=== PATIENT | male | born 1935 | race Caucasian/White ===

== ENCOUNTER 2019-09-06 10:45 | Observation (INO) | payer MEDICARE ==
[2019-09-06] MEDS ORDERED: diphenhydrAMINE 50 MG/ML VIAL ONE (12:23)
[2019-09-06] MEDS ORDERED: Famotidine/PF 20 mg/2ml Vial ONE (12:23)
[2019-09-06] MEDS ORDERED: methylPREDNISolone Sod Succ/PF 125 MG/2 ML VIAL ONE (12:23)
--- NOTE | 2019-09-06 13:26 | CT ---
CT PULMONARY ANGIOGRAM WITH IV CONTRAST AND 3-D POSTPROCESSING: HISTORY:Chest pain. Atrial fibrillation with flutter FINDINGS: There is good contrast opacification of the pulmonary arterial vasculature without filling defects to suggest pulmonary embolism. There are vascular calcifications without evidence of aneurysmal dilatation of the thoracic aorta. Th ere is mediastinal lymphadenopathy. No pericardial effusion is seen. There is a small left and moderate right pleural effusion with adjac ent infiltrate/atelectatic changes. No pneumothoraces, lobar areas of consolidation or lung nodules are noted. Emphysematous changes are present. There are degenerative changes in the spine. Upper abdominal tomograms demonstrate calcified granulomas in the liver and spleen.. IMPRESSION: 1. No CT evidence of pulmonary embolism. 2. Bilateral pleural effusions, right larger than left. 3. Mediastinal lymphadenopathy.
[2019-09-06] MEDS ORDERED: Iopamidol 370 76% 100 ML VIAL ONE (14:43)
--- NOTE | 2019-09-06 15:12 | HP ---
PRIMARY CARE PHYSICIAN: Dr. Sheldon Riggs. REASON FOR ADMISSION: Transferred from [facility] for chest pain. HISTORY OF PRESENT ILLNESS: An 83-year-old male who has underlying history of coronary artery disease with several stents as well as history of ongoing tobacco abuse and alcohol abuse, who was presented to [facility] for chest pain. The patient's chest pain started 3 hours before going to [facility] early in the morning. It was sudden in onset, it was left-sided, associated with mild shortness of breath, it was pleuritic in nature. The patient did not have any associated nausea or diaphoresis or fever. The patient does have chronic cough which has not changed recently. The patient denies any recent upper respiratory infection. He denies any relation with food. The patient has ongoing smoking as well as alcohol abuse, the patient also dips tobacco. The patient is followed by Cardiology in past and he had several stents. At [facility], the patient's heart score was about 4. The patient had electrocardiogram which was showing atrial fibrillation with controlled ventricular response. The patient was given Lovenox 1 mg/kg, GI cocktail, morphine, IV fluid, nitroglycerin patch, and aspirin. Subsequently, the patient was transferred to our hospital for rule out acute coronary syndrome. When I saw this patient, at that time the patient was completely asymptomatic. Family members were present at bedside in the emergency room. REVIEW OF SYSTEMS: All review of systems reviewed and negative except as mentioned in HPI. PAST MEDICAL HISTORY: Coronary artery disease with several stents, history of VT, hypertension, atrial fibrillation, COPD, tobacco abuse disorder, alcohol abuse, peptic ulcer disease required gastrectomy, diverticulosis, history of alcohol-induced pancreatitis, benign enlargement of prostate. PAST SURGICAL HISTORY: Cholecystectomy, cardiac catheterization with stent placement. SOCIAL HISTORY: The patient drinks alcohol almost 6 to 10 beers everyday basis with 2 to 4 glasses of wine. The patient also smokes about half pack per day and he also dips tobacco. FAMILY HISTORY: No strong family history of premature coronary artery disease, stroke, or cancer. ALLERGIES: CODEINE AND IODINE. CURRENT HOME MEDICATIONS: 1. Amlodipine 5 mg p.o. daily. 2. Aspirin 81 mg p.o. daily. 3. Flomax 0.4 mg p.o. daily. 4. Lisinopril 10 mg p.o. daily. 5. Tylenol PM at bedtime. 6. Gabapentin 100 mg daily. 7. Lipitor 10 mg p.o. daily. EMERGENCY ROOM COURSE: The patient was given Lovenox 1 mg/kg and GI cocktail, morphine, IV fluid, and nitroglycerin patch and aspirin at the [facility]. PHYSICAL EXAMINATION: VITAL SIGNS: On arrival, blood pressure 131/80, pulse 86 and irregular, respiratory rate 20, temperature 99.9, saturation 96% on room air. Weight 45.3 kg. GENERAL: The patient is currently alert, awake, chronically ill, frail, no acute distress. HEENT: Head, normocephalic and atraumatic. Eyes; pupils, round, reactive to light. Extraocular muscle intact. ENT, oropharynx within normal limits. Moist mucous membranes. No oral lesion. No pharyngeal erythema. No exudate. NECK: Supple. No JVD. No meningeal signs of irritation. LUNGS: Air entry reduced at bases, few end-expiratory wheezing heard, but no rales. No accessory muscles of respiration in use. CARDIAC: S1 and S2 irregular, no murmur, no gallop, no rub. ABDOMEN: Soft, bowel sounds present, nontender, nondistended. No organomegaly. No mass. EXTREMITIES: No edema. Good distal pulsation. SKIN: No skin rash. HEMATOLOGIC: No lymphadenopathy. NEUROLOGIC: Grossly nonfocal examination. SIGNIFICANT LABORATORY DATA: EKG showing atrial fibrillation with controlled ventricular response, nonspecific ST-T changes. CT angiography done in the emergency room, which showing no evidence of pulmonary embolism, showing good small pleural effusion, chest x-ray done at [facility] showing no acute cardiopulmonary process. Bilateral pleural and parenchymal process, which is chronic. CBC; WBC 12.2, hemoglobin 11.9, platelet 413, 1% bands. INR 0.9, D-dimer 1.35. BMP; sodium 129, potassium 4.7, chloride 97, carbon dioxide 19, BUN 11, creatinine 0.83, glucose 123, calcium 9.1. LFT; AST 21, ALT 12, alkaline phosphatase 57, albumin 4.1, lipase less than 4. Troponin negative x2. ASSESSMENT AND PLAN: 1. Chest pain. The patient's chest pain description is atypical, the patient has history of coronary artery disease and he has a heart score almost 4. We will do serial cardiac enzyme and rule out acute coronary syndrome. We will perform pharmacological stress test tomorrow to rule out underlying ischemia. We will check lipid profile tomorrow morning for risk stratification. At this point, we are suspecting his chest discomfort could be related with gastroesophageal reflux disease, and we will start Pepcid 20 mg p.o. b.i.d. We will also continue with aspirin 81 mg p.o. daily and nitroglycerin patch q.8 hourly. 2. Atrial fibrillation with controlled ventricular response. The patient will need chronic anticoagulation therapy, but the patient is at high risk for chronic anticoagulation therapy given his previous history of GI bleed as well as peptic ulcer disease. We will only continue with aspirin 81 mg p.o. daily. Cardiology will be consulted. 3. Coronary artery disease, currently the patient is admitted for rule out ACS. We will consult Cardiology and further investigation will defer to them. 4. Hyponatremia, most likely related with beer potomania and protein calorie malnutrition. The patient will need fluid restriction as well as alcohol restriction to improve sodium. 5. Microcytic anemia, likely due to alcohol abuse. 6. Alcohol abuse. The patient will need folic acid and vitamin B12 therapy. Tobacco abuse. Smoking cessation counseling given. 7. Hypertension. We will continue with the patient's home medication with amlodipine 5 mg p.o. daily. 8. Benign enlargement of prostate. Continue Flomax 0.4 mg p.o. daily. 9. Dyslipidemia. Continue Lipitor 10 mg p.o. at bedtime and check lipid profile tomorrow. DISPOSITION PLAN: Based on clinical course. Plan of care discussed with the patient in detail. Job ID: [id number]
[2019-09-06] MEDS ORDERED: Ondansetron PF 4 MG/2 ML Vial IVP PRN ×2 (17:38→18:06)
[2019-09-06] MEDS ORDERED: Ondansetron ODT 4 MG TAB SL PRN (17:38)
[2019-09-06] MEDS ORDERED: Acetaminophen 325 MG TAB PO PRN (18:06)
[2019-09-06] MEDS ORDERED: Ondansetron ODT 4 MG TAB PO PRN (18:06)
[2019-09-06] MEDS ORDERED: Senokot S 8.6-50 MG TAB PO PRN (18:06)
[2019-09-06] MEDS ORDERED: Bisacodyl 10 MG SUPP PR PRN (18:06)
[2019-09-06] MEDS ORDERED: Guaifenesin DM 100-10/5 ML UDCUP PO PRN (18:06)
[2019-09-06] MEDS ORDERED: Calcium Carbonate 500 MG ChewTAB PO PRN (18:06)
[2019-09-06] MEDS ORDERED: Loperamide HCl 2 MG CAP PO PRN (18:06)
[2019-09-06 18:22] VITALS: BMI 16.9
[2019-09-06] MEDS: Nitroglycerin 2% Ointment 1 INCH/1 GM Packet TOP SCH ×2 (19:30→23:12)
[2019-09-06] MEDS: Atorvastatin Calcium 10 MG TAB PO SCH (20:25)
[2019-09-06] MEDS: Famotidine 20 MG TAB PO SCH (20:25)
[2019-09-06] MEDS: Metoprolol Tartrate 25 MG TAB PO SCH (20:26)
[2019-09-07 04:25] LABS: #Lymphocytes 0.8 thou/uL (1.20-3.40); #Monocytes 0.7 thou/uL (0.11-0.59); #Neutrophils 8.8 thou/uL (1.40-6.50); %Eosinophils 0.1 % (0.0-10.0); %Lymphocytes 7.8 % (21.0-51.0); %Monocytes 7.1 % (0.0-10.0); %Neutrophils 84.9 % (42.0-75.0); Hemoglobin 10.1 g/dL (14.0-18.0); Mean Corpuscular HGB CONC 33.4 g/dL (32.0-36.0); Mean Corpuscular Hemoglobin 30.3 pg (27.0-31.0); Mean Corpuscular Volume 90.8 fL (78.0-98.0); Mean Platelet Volume 7.7 fL (7.4-10.4); Platelet Count 281 thou/uL (130-400); RBC Distribution Width 12.8 % (11.5-14.5); Red Blood Cell (RBC) Count 3.33 mill/uL (4.70-6.10); White Blood Cell (WBC) Count 10.3 thou/uL (4.8-10.8)
[2019-09-07 04:47] LABS: Anion Gap 11 mmol/L (10-20); BUN (Urea Nitrogen) 12 mg/dL (8.4-25.7); Calc. Creatinine Clearance 52 mL/min (70-130); Calcium 8.5 mg/dL (7.8-10.44); Carbon Dioxide 23 mmol/L (23-31); Cardiac Risk 1.8 (Less than 4.5); Chloride 97 mmol/L (98-107); Cholesterol 115 mg/dl (< 200 Desired); Estimated GFR-MDRD Greater than 90; Glucose 149 mg/dL (83-110); HDL Cholesterol 63 mg/dL (>60 Neg Risk); LDL Cholesterol, Calculated 43 mg/dL; Potassium 4.7 mmol/L (3.5-5.1); Sodium 126 mmol/L (136-145); Triglycerides 47 mg/dL (Less than 150)
[2019-09-07] MEDS ORDERED: FLU VACC TS2019-20(65YR UP)/PF 180 MCG/0.5 ML SYRINGE IM ONE (09:00)
[2019-09-07] MEDS: Aspirin 325 mg Enteric Coated Tablet PO SCH (09:26)
[2019-09-07] MEDS: Amlodipine 5 MG TAB PO SCH (09:26)
[2019-09-07] MEDS: Cyanocobalamin (Vitamin B-12) 1,000 MCG TAB PO SCH (09:27)
[2019-09-07] MEDS: Folic Acid 1 MG TAB PO SCH (09:27)
[2019-09-07] MEDS: Famotidine 20 MG TAB PO SCH ×2 (09:27→20:33)
[2019-09-07] MEDS: Enoxaparin Sodium 40 MG/0.4 ML SYRINGE SC SCH (09:27)
[2019-09-07] MEDS: Gabapentin 100 MG CAP PO SCH (09:27)
[2019-09-07] MEDS: Lisinopril 10 MG TAB PO SCH (09:28)
[2019-09-07] MEDS: Tamsulosin HCl 0.4 MG CAP PO SCH (09:28)
[2019-09-07] MEDS: Metoprolol Tartrate 25 MG TAB PO SCH ×2 (09:28→20:34)
[2019-09-07] MEDS: Thiamine 100 MG TAB PO SCH (09:29)
--- NOTE | 2019-09-07 17:19 | CON ---
DATE OF CONSULTATION: 09/07/2019 REASON FOR CONSULTATION: Chest pain. HISTORY OF PRESENT ILLNESS: Mr. Estevan Christian is an 83-year-old gentleman with history of coronary artery disease, previous stent implantation, and chronic atrial fibrillation, who chews tobacco and records indicate alcohol abuse. He had chest pain. The patient went to the [facility], had pain left-sided, somewhat went across his chest, mostly as a left-sided. He is pain-free now. The patient states he had stents put in by Dr. Madrid in the past. Details not available. The patient is also in atrial fibrillation, which appears to be chronic. REVIEW OF SYSTEMS: All review of systems was reviewed and negative except as outlined above. PAST HISTORY: 1. Coronary artery disease with stent implantation by Dr. Madrid. 2. History of [place]. 3. History of hypertension. 4. History of atrial fibrillation. 5. History of alcohol abuse. SURGICAL HISTORY: Cholecystectomy. FAMILY HISTORY: Negative for heart disease at a young age. MEDICATIONS: 1. Amlodipine. 2. Aspirin. 3. Flomax. 4. Tylenol. In the emergency room, the patient was given Lovenox 1 mg/kg subcutaneously. PHYSICAL EXAMINATION: GENERAL: This is a pleasant elderly gentleman, not having any pain now. VITAL SIGNS: Blood pressure 125/90, pulse 60s and it is atrial fibrillation. HEENT: Also on examination, the patient has very deeply brown stained teeth from chewing tobacco, which he said I have been "doing for 80 years." LUNGS: Clear. CARDIAC: Irregularly irregular. ABDOMEN: Soft and nontender. EXTREMITIES: There is no edema. Peripheral pulses in the feet are diminished. Femoral pulses are palpable, but diminished. LABORATORY DATA: Sodium is 126. Cholesterol is 115 and LDL 43. EKG reveals atrial fibrillation, no acute changes, rate is controlled. ASSESSMENT: 1. Atrial fibrillation, probably chronic. 2. Coronary artery disease. 3. Alcohol abuse. 4. Continues to chew tobacco. 5. Mild anemia, hemoglobin is 10.1. 6. Hyponatremia with constellation of problems, which indicate likely poor long-term prognosis, including although as outlined above. PLAN: We will try to get some records of what type of stenting he has had done and do stress testing tomorrow to risk stratify. High risk of bleeding with anticoagulation. The patient indicates he is not going to quit chewing tobacco when I suggested, he do that, he laughed and said "I have been doing this for 80 years." Job ID: [id number]
--- NOTE | 2019-09-07 17:38 | PDOC.HOSPP ---
- Subjective Encounter Date: 09/07/19 Encounter Time: 17:35 Subjective: f/u for CP and chronic atrial fib/flutter. Current plans for METALLOGRAPHER in am. No new complaints or CP. - Objective Vital Signs & Weight: Vital Signs (12 hours) Temp Pulse Resp BP Pulse Ox 09/07/19 15:56 97.4 F L 55 L 14 125/91 H 100 09/07/19 12:11 98.2 F 60 14 107/54 L 96 09/07/19 08:20 95 09/07/19 07:43 98.0 F 57 L 16 117/69 95 Weight Admit Weight 118 lb 8 oz Weight 118 lb 8 oz I&O: 09/06/19 09/07/19 09/08/19 06:59 06:59 06:59 Intake Total 720 Output Total 500 Balance 220 Result Diagrams: 09/07/19 04:06 09/07/19 04:06 Additional Labs: Laboratory Tests 09/07/19 04:06 Triglycerides 47 Cholesterol 115 LDL Cholesterol, Calc 43 HDL Cholesterol 63 EKG Reviewed by me: Yes (Tele - A-flutter in 's) Hospitalist ROS - Medication Medications: Active Medications Generic Name Dose Route Start Last Admin Trade Name Freq PRN Reason Stop Dose Admin Amlodipine Besylate 5 mg 09/07/19 09:00 09/07/19 09:26 Norvasc PO 5 mg DAILY CONNIE Administration Aspirin 325 mg 09/07/19 09:00 09/07/19 09:26 Ecotrin PO 325 mg DAILY CONNIE Administration Atorvastatin Calcium 10 mg 09/06/19 21:00 09/06/19 20:25 Lipitor PO 10 mg HS CONNIE Administration Cyanocobalamin 1,000 mcg 09/07/19 09:00 09/07/19 09:27 Vitamin B-12 PO 1,000 mcg DAILY CONNIE Administration Enoxaparin Sodium 40 mg 09/07/19 09:00 09/07/19 09:27 Lovenox SC 40 mg 0900 CONNIE Administration Famotidine 20 mg 09/06/19 21:00 09/07/19 09:27 Pepcid PO 20 mg BID CONNIE Administration Folic Acid 1 mg 09/07/19 09:00 09/07/19 09:27 Folvite PO 1 mg DAILY CONNIE Administration Gabapentin 100 mg 09/07/19 09:00 09/07/19 09:27 Neurontin PO 100 mg DAILY CONNIE Administration Lisinopril 10 mg 09/07/19 09:00 09/07/19 09:28 Zestril PO 10 mg DAILY CONNIE Administration Metoprolol Tartrate 12.5 mg 09/06/19 21:00 09/07/19 09:28 Lopressor PO 12.5 mg BID CONNIE Administration Tamsulosin HCl 0.4 mg 09/07/19 09:00 09/07/19 09:28 Flomax PO 0.4 mg DAILY CONNIE Administration Thiamine HCl 100 mg 09/07/19 09:00 09/07/19 09:29 Thiamine PO 100 mg DAILY CONNIE Administration - Exam General Appearance: NAD, awake alert Eye: PERRL, anicteric sclera ENT: normocephalic atraumatic ENT - other findings: global dental decay and staining Neck: supple, symmetric, no JVD, no thyromegaly Heart: no gallops, no rubs, normal peripheral pulses, irregular Heart - other findings: S1, S2 Respiratory: CTAB, no wheezes, no rales, no ronchi, normal chest expansion Gastrointestinal: soft, non-tender, non-distended, normal bowel sounds, no palpable masses Extremities: no cyanosis, no clubbing, no edema Skin: normal turgor, no lesions Neurological: cranial nerve grossly intact, no new deficit Musculoskeletal: normal tone, generalized weakness Psychiatric: normal affect, A&O x 3 Hosp A/P (1) Chest pain Code(s): R07.9 - CHEST PAIN, UNSPECIFIED Status: Acute Plan: ACS r/o, METALLOGRAPHER pending, ASA/Lipitor (2) Atrial flutter, chronic Code(s): I48.92 - UNSPECIFIED ATRIAL FLUTTER Status: Chronic Plan: Rate controlled currently, continue rate-control measures, Echo pending (3) Hyponatremia Code(s): E87.1 - HYPO-OSMOLALITY AND HYPONATREMIA Status: Chronic Plan: Likely due to usp ETOH abuse (4) HTN (hypertension) Code(s): I10 - ESSENTIAL (PRIMARY) HYPERTENSION Status: Chronic Qualifiers: Hypertension type: essential hypertension Qualified Code(s): I10 - Essential (primary) hypertension (5) Tobacco chew use Code(s): Z72.0 - TOBACCO USE Status: Chronic Plan: Patient wishes to continue (6) Alcohol abuse Code(s): F10.10 - ALCOHOL ABUSE, UNCOMPLICATED Status: Chronic Plan: Monitor for withdrawal symptoms - Plan out of bed/ambulate, DVT proph w/SCDs Stable currently Continue Metoprolol/Lisinopril/Amlodipine METALLOGRAPHER in am Echo pending Continue ASA/Lipitor AM lab: Iron, Ferritin
[2019-09-07] MEDS: Atorvastatin Calcium 10 MG TAB PO SCH (20:37)
[2019-09-08] MEDS ORDERED: Iron, Sodium Ferric Gluconate 250 MG in Sodium Chloride 0.9% 100 ML IVPB SCH (09:00)
[2019-09-08 11:10] VITALS: BP 179/86; TEMP 97.6
[2019-09-08] MEDS: Amlodipine 5 MG TAB PO SCH (11:11)
[2019-09-08] MEDS: Aspirin 325 mg Enteric Coated Tablet PO SCH (11:12)
[2019-09-08] MEDS: Enoxaparin Sodium 40 MG/0.4 ML SYRINGE SC SCH (11:12)
[2019-09-08] MEDS: Cyanocobalamin (Vitamin B-12) 1,000 MCG TAB PO SCH (11:12)
--- NOTE | 2019-09-08 11:12 | NM ---
EXAM: Nuclear Medicine Cardiac SPECT with EF and wall motion: HISTORY: Chest pain Protocol: Exam was performed using Lexiscan protocol. The patient is injected with 30.6 millicuries of technetium 99m sestamibi intravenously for stress im ages. The patient is injected with 9.9 millicuries of technetium 99 sestamibi intravenously for resting kel ges. Multiple SPECT images are performed in the short axis, vertical long axis, and horizontal long axis. FINDINGS: No scan evidence for infarct or ischemia. TID:0.86 LHR:0.34 EDV:54 mL EF:81% Wall motion:Normal IMPRESSION: Unremarkable cardiac SPECT with EF and wall motion
[2019-09-08] MEDS: Famotidine 20 MG TAB PO SCH (11:13)
[2019-09-08] MEDS: Folic Acid 1 MG TAB PO SCH (11:13)
[2019-09-08] MEDS: Lisinopril 10 MG TAB PO SCH (11:14)
[2019-09-08] MEDS: Gabapentin 100 MG CAP PO SCH (11:14)
[2019-09-08] MEDS: Metoprolol Tartrate 25 MG TAB PO SCH (11:14)
[2019-09-08] MEDS: Thiamine 100 MG TAB PO SCH (11:15)
[2019-09-08] MEDS: Tamsulosin HCl 0.4 MG CAP PO SCH (11:15)
[2019-09-08] MEDS ORDERED: Amlodipine 5 MG TAB PO SCH (11:30)
[2019-09-08] MEDS ORDERED: Regadenoson 0.4 MG/5 ML SYRINGE ONE (12:00)
--- NOTE | 2019-09-08 13:36 | PRG ---
DATE OF SERVICE: 09/08/2019 WEEKLY FOLLOWUP SUBJECTIVE: Mr. Christian is pain free, no problem. He did develop some bradycardia on the beta-jessica here. He was not on beta-jessica at home. OBJECTIVE: VITAL SIGNS: His blood pressure is variable, yesterday 133/60 and most recently 179/86. LUNGS: Clear. CARDIAC: Irregularly irregular. ABDOMEN: Soft and nontender. EXTREMITIES: No edema. LABORATORY DATA: Sodium is 126. Troponins were negative. Cholesterol, LDL is 43. ASSESSMENT: 1. Episode of chest pain. Underwent stress testing, no ischemia. 2. Chronic tobacco abuse. 3. Alcohol dependence. 4. Iron deficiency anemia. 5. Chronic atrial fibrillation. 6. Appears to be noncompliant. PLAN: 1. He will follow up with Dr. Madrid as an outpatient. 2. Stop beta-jessica, he was started on that here in the hospital, but his heart rate was not high initially. 3. Oral iron. 4. Aspirin 81 mg a day. 5. I would not recommend anticoagulation as risk greatly outweighs the benefit. He is already iron deficient even without an anticoagulant. 6. Stop beta-jessica. 7. Continue amlodipine and lisinopril. As mentioned, he will be following up as an outpatient with Dr. Madrid. Job ID: [id number]
[2019-09-09] MEDS ORDERED: Iron Polysaccharides Complex 150 MG CAP PO SCH (08:00)
[2019-09-09] MEDS ORDERED: Aspirin 81 mg Enteric Coated Tablet PO SCH (09:00)
--- NOTE | 2019-09-09 11:23 | DIS ---
DATE OF ADMISSION: 09/06/2019 DATE OF DISCHARGE: 09/08/2019 DISCHARGE DIAGNOSES: 1`. Chest pain possibly secondary to gastroesophageal reflux disease 2. Chronic hyponatremia 3. Possible iron deficiency anemia 4. Atrial fibrillation, 5. Bradycardia. CONSULTATIONS: Cardiology with Dr. Colby Ng. PROCEDURES: None. BRIEF HISTORY OF PRESENT ILLNESS: This is an 83-year-old male with past medical history of CAD status post ND, hypertension, atrial fibrillation, who presented to the emergency room with left-sided chest pain. The patient states that he was sitting in his chair when he got the pain. He states that his pain lasted until he came to the emergency room, and received morphine. He has not have any further episodes of pain since being in the hospital. He denied any shortness of breath on exertion. He denied lightheadedness, dizziness, fevers, chills, or recent travel history. The patient had an EKG which showed normal sinus rhythm. He was admitted to the emergency room for chest pain workup. HOSPITAL COURSE: Chest pain: The patient had 2 sets of troponins, which were negative. He underwent a nuclear stress test, which was normal. He had a CTA of his thorax, which showed no evidence of PE. He has bilateral pleural effusions, right larger than left. He has some mediastinal lymphadenopathy. He had a chest x-ray, which was unremarkable. The patient was seen by Cardiology and felt to be stable for discharge. He could follow up with his real estate assistant as an outpatient. He was placed on Pepcid 20 mg b.i.d. for possible acid reflux and should continue this. He should follow up with his PCP in a week. Hypertension: The patient is on amlodipine 5 mg p.o. daily. He was also on lisinopril and metoprolol. His metoprolol was discontinued due to episodes of bradycardia to the 30s to 40s in the hospital. He should follow up with his PCP and have his blood pressure rechecked as an outpatient. Atrial fibrillation: The patient had an EKG here which showed normal sinus rhythm. On the day of discharge, he does have an irregular rhythm. He is not a candidate for anticoagulation due to his severe anemia. His beta-jessica was discontinued due to bradycardia. The patient can be monitored as an outpatient. Anemia: The patient had iron studies done, which showed a ferritin of 55, serum iron of 19. His hemoglobin was 10.1. He was started on iron supplementation and should have a repeat CBC and iron studies done in 6 weeks. Hyponatremia: The patient had a sodium of 126 while in the hospital. This is chronic for him. He denies any dizziness or lightheadedness. This can be monitored further as an outpatient. DISCHARGE PHYSICAL EXAMINATION: VITAL SIGNS: Temperature 97.6, heart rate 86, respiratory rate 20, O2 saturation 94% on room air, blood pressure 179/86. GENERAL: The patient is alert, awake, oriented x3. CVS: Regular rate and rhythm with no murmurs, rubs, or gallops. LUNGS: Clear to auscultation bilaterally. ABDOMEN: The patient has mild left upper quadrant and right upper quadrant tenderness. EXTREMITIES: No edema. PERTINENT LABORATORY DATA: CBC on 09/06: White count 10.3, hemoglobin 10.1, hematocrit 30.1, bands 1%, 281. BMP on 09/06: Sodium 126, chloride 97, creatinine 0.81. Rest of BMP unremarkable. Iron panel: Serum iron 19, ferritin 55. LFTs on 09/05: AST 21, ALT 12, alkaline phosphatase 57. Troponin I: 0.010, 0.014. Lipid panel: LDL 43, HDL 63, cholesterol 115, triglycerides 47. Lipase: Less than 4. PERTINENT IMAGING: CTA of the chest: Shows no evidence of PE. There are bilateral pleural effusions, right greater than left. There is mediastinal lymphadenopathy. Chest x-ray on 09/05: Unremarkable. Atherosclerosis. Nuclear stress test on 09/07: Normal. ECHO 09/07: EF 55-60%, moderate MR, moderate to severe TR, moderately elevated pulmonary artery pressure DISCHARGE CONDITION: Stable. ACTIVITY: As tolerated. DIET: Heart healthy diet. DISCHARGE MEDICATIONS: NEW PRESCRIPTIONS: 1. Iron sulfate 325 mg p.o. b.i.d. 2. Pepcid 20 mg p.o. b.i.d. 3. Lasix 20 mg p.o. daily p.r.n. for chest congestion or edema. DISCONTINUED MEDICATIONS: Metoprolol. DISCHARGE INSTRUCTIONS: The patient is to follow up with his PCP in a week since his metoprolol was discontinued and for further evaluation of his chest pain. He should follow up with his real estate assistant as an outpatient within 1 to 2 weeks. He should have repeat iron studies and hemoglobin done in 6 weeks. He should have consideration of an outpatient colonoscopy. Job ID: [id number] MTDD
--- NOTE | 2019-09-10 13:36 | EKG ---
Test Reason : CP Blood Pressure : / mmHG Vent. Rate : 083 BPM Atrial Rate : 220 BPM P-R Int : 000 ms QRS Dur : 078 ms QT Int : 362 ms P-R-T Axes : 000 -22 013 degrees QTc Int : 425 ms Atrial flutter with variable A-V block Low voltage QRS Nonspecific ST abnormality Abnormal ECG Confirmed by FAZAL MCCARTHY, CHRISTIN ([id number]), rewrite editor MESHA SALDANA ([id number]) on 09/10/2019 1:35:57 PM Referred By: FAZAL Confirmed By:CHRISTIN DIEHL MD
== END 2019-09-08 14:50 | disposition home or self-care (01) ==
LOC: ERS 10:45 → 2NO 17:54
PROVIDERS: ADMIT Internal Medicine; ATTEND Internal Medicine
DX: R07.9 Chest pain, unspecified (principal); I25.10 Atherosclerotic heart disease of native coronary artery without angina pectoris; E87.1 Hypo-osmolality and hyponatremia; I48.20 Chronic atrial fibrillation, unspecified; R00.1 Bradycardia, unspecified; D50.9 Iron deficiency anemia, unspecified; I10 Essential (primary) hypertension; J44.9 Chronic obstructive pulmonary disease, unspecified; N40.0 Benign prostatic hyperplasia without lower urinary tract symptoms; E78.5 Hyperlipidemia, unspecified; F17.210 Nicotine dependence, cigarettes, uncomplicated; F17.220 Nicotine dependence, chewing tobacco, uncomplicated; I48.92 Unspecified atrial flutter; F10.20 Alcohol dependence, uncomplicated; I25.2 Old myocardial infarction; Z79.82 Long term (current) use of aspirin; Z79.899 Other long term (current) drug therapy; Z87.11 Personal history of peptic ulcer disease; Z88.5 Allergy status to narcotic agent; Z90.3 Acquired absence of stomach [part of]; Z91.041 Radiographic dye allergy status; Z95.5 Presence of coronary angioplasty implant and graft
CPT/HCPCS: 36415; 71275; 78452; 80048; 80061; 82728; 83540; 85025; 93005; 93017; 93306; 96361; 96372; 96374; 96375; A9500; G0378; J1200; J1650; J2785; J2916; J2930; J3490; Q9967; S0028